=== PATIENT | female | born 1955 | race Caucasian/White ===

== ENCOUNTER → 2017-04-22 | Outpatient (CLI) | payer OTHER ==
[~2017-04-22] MED LIST: ADULT LOW DOSE81 MG PO; AMBIEN 5 MG TABL5 M1 PO; CIPROFLOXACIN500 M1 PO; HYDROCHLOROTHIA25 M1 PO; IMDUR 30 MG TAB30 M1 PO; LIPITOR40 MG PO; LISINOPRIL5 MG PO; MOTION RELIEF25 MG PO; PAXIL20 MG PO; PREDNISONE 20 M20 M1 PO; PROMETHAZINE-D118 ML PO; RESTORIL15 MG PO; SYNTHROID75 MCG PO; TOPROL XL50 MG PO; VENTOLIN HFA 1818 GM INH; XANAX1 MG PO; ZOFRAN ODT4 MG PO; ZOFRAN ODT4 MG SUBLING; ZPAK PO
== END ==
LOC: M.RAD 15:06
DX: R05 Cough (principal); R06.00 Dyspnea, unspecified

== ENCOUNTER 2017-04-26 12:22 | Emergency (ER) | payer OTHER ==
[~2017-04-26] VITALS: Ht 162.6 cm; Wt 93.4 kg
[~2017-04-26 12:22] MED LIST changes: -PREDNISONE 20 M20 M1 PO; -PROMETHAZINE-D118 ML PO; -VENTOLIN HFA 1818 GM INH; -ZPAK PO
[2017-04-26 12:58] LABS: ABSOLUTE EOSINOPHILS 0.1 thou/uL (0.0-0.7); ABSOLUTE LYMPHOCYTES 1.3 thou/uL (0.8-5.3); ABSOLUTE MONOCYTES 0.7 thou/uL (0.0-1.2); ABSOLUTE NEUTROPHILS 2.3 thou/uL (1.6-8.1); BASOPHILS 0.8 %; EOSINOPHILS 1.9 %; HEMATOCRIT 37.9 % (37.0-47.0); HEMOGLOBIN 12.6 gm/dL (12.0-15.0); LYMPHOCYTES 28.6 %; MCH 26.4 pg (26.0-34.0); MCHC 33.2 g/dL (28.0-37.0); MCV 79.6 fL (80.0-100.0); MONOCYTES 15.5 %; MPV 7.6 fl. (7.2-11.1); NUCLEATED RBCS 0 /100WBC; PLATELET COUNT* 183 thou/uL (150-400); POLYS 53.2 %; RBC 4.77 mil/uL (4.20-5.00); RDW-CV 16.5 % (10.5-14.5); WBC 4.4 thou/uL (4.0-11.0)
[2017-04-26 13:12] LABS: CALCIUM 8.6 mg/dL (8.5-10.1); CREATININE 1.1 mg/dL (0.6-1.3); POTASSIUM 3.6 mmol/L (3.5-5.1)
[2017-04-26] MEDS ORDERED: VENTOLIN HFA 1818 GM INH (13:21)
[2017-04-26] MEDS ORDERED: PREDNISONE 20 M20 M1 PO (13:21)
[2017-04-26] MEDS ORDERED: ZPAK PO (13:21)
[2017-04-26 13:24] LABS: ALBUMIN 3.4 g/dL (3.4-5.0); TOTAL BILIRUBIN 0.5 mg/dL (<0.1-1.0); TOTAL PROTEIN 6.6 g/dL (6.4-8.2)
[2017-04-26 13:46] VITALS: BP 99/46
--- NOTE | 2017-04-26 15:12 | EKG ---
[place] [address] ELECTROCARDIOGRAM REPORT Name: LAYTONCOURTNEY ALVAREZGERRI R Room: 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 04/26/17 1511 1230 1230 Alvarez Moran MD, FAC /EPI
== END 2017-04-26 13:48 | disposition home or self-care (01) ==
LOC: M.ERS 12:22
PROVIDERS: Family Medicine
DX: J40 Bronchitis, not specified as acute or chronic (principal); E03.9 Hypothyroidism, unspecified; I10 Essential (primary) hypertension; F41.9 Anxiety disorder, unspecified; F17.210 Nicotine dependence, cigarettes, uncomplicated; Z90.710 Acquired absence of both cervix and uterus; Z88.1 Allergy status to other antibiotic agents; Z88.2 Allergy status to sulfonamides

== ENCOUNTER 2017-04-30 22:10 | Emergency (ER) | payer OTHER ==
[~2017-04-30] VITALS: Ht 162.6 cm; Wt 92.5 kg
[~2017-04-30 22:10] MED LIST changes: +PREDNISONE 20 M20 M1 PO; +VENTOLIN HFA 1818 GM INH; +ZPAK PO
[2017-04-30] MEDS ORDERED: PROMETHAZINE-D118 ML PO (23:01)
[2017-04-30 23:05] VITALS: BP 145/67
== END 2017-04-30 23:07 | disposition home or self-care (01) ==
LOC: M.ERS 22:10
DX: R05 Cough (principal); E03.9 Hypothyroidism, unspecified; I10 Essential (primary) hypertension; F41.9 Anxiety disorder, unspecified; F17.210 Nicotine dependence, cigarettes, uncomplicated; Z90.710 Acquired absence of both cervix and uterus; Z88.1 Allergy status to other antibiotic agents; Z88.2 Allergy status to sulfonamides

== ENCOUNTER 2020-08-05 19:25 | Emergency (ER) | payer BC ==
[~2020-08-05] VITALS: Ht 162.6 cm; Wt 80.7 kg
[~2020-08-05 19:25] MED LIST changes: +PROMETHAZINE-D118 ML PO
[2020-08-05] MEDS ORDERED: NORVASC5 MG PO (19:40)
[2020-08-05] MEDS ORDERED: LEXAPRO20 MG PO (19:40)
[2020-08-05] MEDS ORDERED: FLEXERIL PO (19:41)
[2020-08-05] MEDS ORDERED: LIPITOR10 MG PO (19:41)
[2020-08-05] MEDS ORDERED: MECLIZINE HCL25 M1 PO (19:41)
[2020-08-05 20:36] LABS: ABSOLUTE LYMPHOCYTES 1.1 thou/uL (0.8-5.3); ABSOLUTE MONOCYTES 1.4 thou/uL (0.0-1.2); ABSOLUTE NEUTROPHILS 11.1 thou/uL (1.6-8.1); BASOPHILS 0.3 %; HEMATOCRIT 39.1 % (37.0-47.0); HEMOGLOBIN 13.2 gm/dL (12.0-15.0); LYMPHOCYTES 8.3 %; MCH 28.6 pg (26.0-34.0); MCHC 33.8 g/dL (28.0-37.0); MCV 84.8 fL (80.0-100.0); MONOCYTES 10.3 %; MPV 7.6 fl. (7.2-11.1); NUCLEATED RBCS 0 /100WBC; PLATELET COUNT* 230 thou/uL (150-400); POLYS 81.1 %; RBC 4.61 mil/uL (4.20-5.00); RDW-CV 14.1 % (10.5-14.5); WBC 13.7 thou/uL (4.0-11.0)
[2020-08-05 20:41] LABS: CALCIUM 8.8 mg/dL (8.5-10.1); CREATININE 0.7 mg/dL (0.6-1.3); POTASSIUM 3.9 mmol/L (3.5-5.1)
[2020-08-05 20:45] LABS: ALBUMIN 3.3 g/dL (3.4-5.0); TOTAL BILIRUBIN 1.2 mg/dL (<0.1-1.0); TOTAL PROTEIN 7.1 g/dL (6.4-8.2)
[2020-08-05] MEDS ORDERED: TRANSDERM-SCOP1 EACH TRANSDERM ×2 (21:11→23:07)
[2020-08-05] MEDS ORDERED: ONDANSETRON ODT4 MG PO (21:11)
[2020-08-05 21:25] LABS: URINE BILIRUBIN NEGATIVE (Negative); URINE BLOOD 2+ (Negative); URINE COLOR YELLOW; URINE GLUCOSE-RANDOM NEGATIVE (Negative); URINE KETONES NEGATIVE (Negative); URINE PROTEIN TRACE (Negative)
[2020-08-05 21:26] LABS: URINE CLARITY SL HAZY; URINE LEUKOCYTES-REFLEX 3+ (Negative); URINE NITRITE-REFLEX POSITIVE (Negative)
[2020-08-05 21:34] LABS: BACTERIA-REFLEX >30 Many /HPF (None Seen); CASTS None Seen /LPF (None Seen); CRYSTALS None Seen /LPF (None Seen); MUCUS 0-3 Light strn/LPF (None Seen); SQUAMOUS 0-3 Few /LPF (0-3); URINE WBC-REFLEX >25 Many /HPF (0-5); WBC CLUMPS Few (None Seen)
[2020-08-05] MEDS ORDERED: MACROBID 100 M100 M1 PO (23:05)
[2020-08-05] MEDS ORDERED: ZOFRAN ODT4 MG PO (23:05)
[2020-08-05 23:30] VITALS: BP 167/90
--- NOTE | 2020-08-06 12:56 | EKG ---
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: [place] : 1955 Requested By: Nnamdi Jarvis Order Number: [id number] MD: Alvarez Moran Measurements Intervals [place] Rate: 101 P: 20 GA: 126 QRS: 40 QRSD: 87 T: 22 QT: 346 QTc: 449 Interpretive Statements Sinus tachycardia Ventricular bigeminy Minimal ST depression, anterolateral leads Compared to ECG 04/26/2017 12:30:14 Ventricular premature complex(es) now present Sinus rhythm no longer present Electronically Signed On 08-06-2020 12:56:05 CDT by Alvarez Moran [email or web address] <ELECTRONICALLY SIGNED> By: Alvarez Moran MD, [facility] 08/06/20 1256 35 35 Alvarez Moran MD, [facility] /EPI
== END 2020-08-05 23:32 | disposition home or self-care (01) ==
LOC: M.ERS 19:25
PROVIDERS: Physician Assistant
DX: N39.0 Urinary tract infection, site not specified (principal); Z20.822 Contact with and (suspected) exposure to COVID-19; R42 Dizziness and giddiness; E03.9 Hypothyroidism, unspecified; I10 Essential (primary) hypertension; F17.210 Nicotine dependence, cigarettes, uncomplicated; Z88.1 Allergy status to other antibiotic agents; Z88.2 Allergy status to sulfonamides; Z90.710 Acquired absence of both cervix and uterus

== ENCOUNTER 2020-08-08 14:36 | Emergency (ER) | payer BC ==
[~2020-08-08] VITALS: Ht 160 cm; Wt 80.7 kg
[~2020-08-08 14:36] MED LIST changes: +FLEXERIL PO; +LEXAPRO20 MG PO; +LIPITOR10 MG PO; +MACROBID 100 M100 M1 PO; +MECLIZINE HCL25 M1 PO; +NORVASC5 MG PO; +ONDANSETRON ODT4 MG PO; +TRANSDERM-SCOP1 EACH TRANSDERM
[2020-08-08 15:25] LABS: ABSOLUTE BASOPHILS 0.1 thou/uL (0.0-0.2); ABSOLUTE LYMPHOCYTES 1.6 thou/uL (0.8-5.3); ABSOLUTE MONOCYTES 0.8 thou/uL (0.0-1.2); ABSOLUTE NEUTROPHILS 5.8 thou/uL (1.6-8.1); BASOPHILS 0.7 %; HEMATOCRIT 35.9 % (37.0-47.0); HEMOGLOBIN 12.2 gm/dL (12.0-15.0); LYMPHOCYTES 19.2 %; MCH 28.9 pg (26.0-34.0); MCHC 33.9 g/dL (28.0-37.0); MCV 85.1 fL (80.0-100.0); MONOCYTES 9.9 %; MPV 7.5 fl. (7.2-11.1); NUCLEATED RBCS 0 /100WBC; PLATELET COUNT* 251 thou/uL (150-400); POLYS 70.2 %; RBC 4.22 mil/uL (4.20-5.00); RDW-CV 13.9 % (10.5-14.5); WBC 8.3 thou/uL (4.0-11.0)
[2020-08-08 15:30] LABS: ANION GAP 7 mmol/L (7-16); BUN 15 mg/dL (7-18); CALCIUM 8.6 mg/dL (8.5-10.1); CHLORIDE 102 mmol/L (98-107); CO2 27 mmol/L (21-32); CREATININE 0.7 mg/dL (0.6-1.3); GLUCOSE 88 mg/dL (70-99); POTASSIUM 3.9 mmol/L (3.5-5.1); SODIUM 136 mmol/L (136-145)
[2020-08-08 15:36] LABS: ALKALINE PHOSPHATASE 105 U/L (46-116); SGOT 8 U/L (15-37); SGPT < 6 U/L (30-65); TOTAL BILIRUBIN 0.4 mg/dL (<0.1-1.0); TOTAL PROTEIN 6.7 g/dL (6.4-8.2)
[2020-08-08 15:49] LABS: URINE BILIRUBIN NEGATIVE (Negative); URINE BLOOD 1+ (Negative); URINE CLARITY CLEAR; URINE COLOR YELLOW; URINE GLUCOSE-RANDOM NEGATIVE (Negative); URINE KETONES NEGATIVE (Negative); URINE NITRITE-REFLEX NEGATIVE (Negative); URINE PROTEIN NEGATIVE (Negative); URINE SPECIFIC GRAVITY <= 1.005 (1.005-1.030)
[2020-08-08 15:53] LABS: URINE LEUKOCYTES-REFLEX 2+ (Negative)
[2020-08-08 16:02] LABS: BACTERIA-REFLEX None Seen /HPF (None Seen); CASTS None Seen /LPF (None Seen); CRYSTALS None Seen /LPF (None Seen); SQUAMOUS 4-10 Moderate /LPF (0-3); URINE RBC 0-2 Rare /HPF (0-2); URINE WBC-REFLEX 0-5 Rare /HPF (0-5)
[2020-08-08] MEDS ORDERED: DOXYCYCLINE 10100 M2 PO (16:51)
[2020-08-08] MEDS ORDERED: DIAZEPAM 5 MG5 MG PO (16:51)
[2020-08-08 17:00] VITALS: BP 133/80
--- NOTE | 2020-08-09 09:36 | EKG ---
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: [place] : 1955 Requested By: Leroy Morel Order Number: [id number] MD: Alvarez Moran Measurements Intervals [place] Rate: 79 P: -10 TX: 114 QRS: 36 QRSD: 85 T: 0 QT: 350 QTc: 402 Interpretive Statements Sinus rhythm Borderline short [place] interval Borderline T abnormalities, inferior leads Compared to ECG 08/05/2020 19:36:42 Sinus tachycardia no longer present Ventricular premature complex(es) no longer present Electronically Signed On 08-09-2020 9:36:27 CDT by Alvarez Moran [email or web address] <ELECTRONICALLY SIGNED> By: Alvarez Moran MD, [facility] 08/09/20 0936 1526 1526 Alvarez Moran MD, [facility] /EPI
== END 2020-08-08 17:00 | disposition home or self-care (01) ==
LOC: M.ERS 14:36
PROVIDERS: Emergency Medicine Emergency Medical Services
DX: N39.0 Urinary tract infection, site not specified (principal); R42 Dizziness and giddiness; I10 Essential (primary) hypertension; F17.210 Nicotine dependence, cigarettes, uncomplicated; Z88.1 Allergy status to other antibiotic agents; Z88.2 Allergy status to sulfonamides; E03.9 Hypothyroidism, unspecified; Z90.710 Acquired absence of both cervix and uterus